=== PATIENT | male | born 2000 | race Caucasian/White ===

== ENCOUNTER 2024-03-07 21:17 | Observation (INO) | payer OTHER, SELFPAY ==
--- NOTE | ~2024-03-07 | CT_ITS ---
) CT abdomen pelvis w con Ordering provider: Gerda Collado APRN History: 23 years Male with . L quadrant abdominal pain . Comparison: None. Technique: CT abdomen and pelvis with IV and without oral contrast. Automated exposure control and it erative reconstruction technique were employed. The dose-length product was 480.75 mGy-cm. 100 mL Omn ipaque 350 was given IV. Findings: VISUALIZED LOWER CHEST: Normal. UPPER ABDOMINAL ORGANS: Liver: Normal. Gallbladder: Normal. Spleen: Normal. Stomach/duodenum: Thickening of the wall of the stomach. Clinical evaluation advised. Pancreas: Normal. Adrenals: Normal. Kidneys: Normal. PELVIC ORGANS: The bladder is normal. BOWEL AND MESENTERY: Colon: No evidence of diverticulitis. Dilated appendix with thickened wall and appendicolith is noted suggestive of appendicitis. Surrounding fat stranding is also seen. The appendix measures 1.3 cm. Small Bowel: Normal. No obstruction. Peritoneum/mesentery: No free air or free fluid. No mesenteric lymphadenopathy. RETROPERITONEUM: Normal aorta. No retroperitoneal lymphadenopathy. MUSCULOSKELETAL: Superficial soft tissues: The superficial soft tissues are normal. Bones: Normal spine. IMPRESSION: 1. Appendicitis with appendicoliths. 2. No other definite abnormality seen. Physician: Gerda Collado APRN Was notified with the result of the patient at the time of dictation which is 11:00 PM on February 232023 Reviewed, dictated and finalized at location A. IMPRESSION: 1. Appendicitis with appendicoliths. 2. No other definite abnormality seen. Physician: Gerda Collado APRN Was notified with the result of the patient at the time of dictation which is 1 1:00 PM on March 07, 2024
[2024-03-07 21:50] VITALS: BP 123/73; PULSE 80; RESP 12; TEMP 36.7; O2SAT 98
[2024-03-07 22:03] LABS: Basophils Percent Auto 0.2 % (0.2-1.2); Eosinophils Absolute Auto 0.1 K/mm3 (0-0.3); Eosinophils Percent Auto 0.3 % (0-4.4); Hematocrit 44.1 % (42.0-52.0); Hemoglobin 15.5 g/dL (14.0-18.0); Immature Granulocyte Absolute 0.08 K/mm3 (0.00-0.031); Immature Granulocyte Percent A 0.4 % (0-0.5); Lymphocytes Absolute Auto 0.89 K/mm3 (0.9-3.2); Lymphocytes Percent Auto 4.8 % (18.3-44.2); Mean Corpuscular HGB Conc 35.1 g/dl (32-36); Mean Corpuscular Hemoglobin 31.1 pg (26-34); Mean Corpuscular Volume 88.4 fl (80-100); Mean Platelet Volume 10.7 fl (7.4-10.4); Monocytes Absolute Auto 0.6 K/mm3 (0.1-0.6); Monocytes Percent Auto 3.5 % (2.6-8.5); Neutrophils Absolute Auto 16.8 K/mm3 (1.3-6.7); Neutrophils Percent Auto 90.8 % (45.5-73.1); Platelet Count Result 192 k/mm3 (150-375); Red Blood Count 4.99 M/mm3 (4.6-6.20); Red Cell Distribution Width 12.8 % (11.5-14.5); White Blood Count 18.5 K/mm3 (4.5-10.0)
[2024-03-07] MEDS: ONDANSETRON INJ 4 MG/2 ML VIAL IV PUSH (22:09)
[2024-03-07] MEDS: HALOPERIDOL LACTATE 5 MG/ML VIAL IM (22:09)
[2024-03-07] MEDS: SODIUM CHLORIDE 0.9% IV 1,000 ML 999 ML IV CONT (22:09)
[2024-03-07] MEDS: FAMOTIDINE 20 MG/2 ML VIAL IV PUSH (22:09)
[2024-03-07 22:11] LABS: Alanine Aminotransferase 16 U/L (6-50); Albumin Level 4.8 g/dL (3.5-5.1); Alkaline Phosphatase 69 U/L (38-126); Anion Gap 16 mmol/L (4-12); Aspartate Amino Transferase 22 U/L (17-59); Bilirubin,Total 1.2 mg/dL (0.2-1.3); Blood Urea Nitrogen 15 mg/dL (9-20); Calcium 9.9 mg/dL (8.4-10.2); Carbon Dioxide 22 mmol/L (22-30); Chloride 100 mmol/L (98-107); Estimated CRCL calculation 154 ml/min; Estimated Glomerular Filt Rate > 60; Glucose 114 mg/dL (65-110); Lipase 288 U/L (23-300); Potassium 3.5 mmol/L (3.4-5.0); Sodium 138 mmol/L (137-145)
[2024-03-07 22:53] LABS: Troponin I < 0.012 ng/mL (0.000-0.034)
[2024-03-07 22:54] LABS: Add Urine Microscopic? YES; Appearance Urine Cloudy (Clear); Bacteria Urine None Seen /hpf; Bilirubin Urine Negative (Negative); Blood Urine Negative (Negative); Color Urine Yellow (Yellow); Glucose Urine UA Negative (Negative); Ketones Urine 3+ mg/dL (Negative); Leukocyte Esterase Ur Negative LEU/UL (Negative); Nitrate Urine Negative (Negative); Non Pathogenic Casts 0-2; Protein Urine Trace mg/dL (Negative); RBC Urine 0-2 /hpf (0-2); Specific Grav Ur > 1.045 (1.001-1.035); Squamous Epithelial Cell Urine None Seen /hpf (Few); WBC Urine 0-5 /hpf (0-3); pH Urine 6.5 (5.0-9.0)
[2024-03-07] MEDS: MORPHINE SULFATE (*CRX) 4 MG/ML INJ IV PUSH (23:13)
[2024-03-07 23:15] VITALS: BP 123/71; PULSE 76; RESP 12; O2SAT 99
[2024-03-07] MEDS: PIPERACILLN/TAZ 3.375GM/NS50ML 3.375 GM/50 ML BAG IVPB (23:33)
[2024-03-08] VITALS (11 sets, daily range): BP systolic 113–130; BP diastolic 56–71; PULSE 86–100; RESP 12–27; TEMP 36.3–37.4; O2SAT 97–100; BMI 28.5; BMI 25.9
--- NOTE | 2024-03-08 00:37 | ED.ABDPAIN ---
HPI - Abdominal Pain General Chief Complaint: Abdominal Pain <Gerda Collado APRN - Last Filed: 03/08/24 00:48> Stated Complaint: Abd pain <Gerda Collado APRN - Last Filed: 03/08/24 00:48> Time Seen by Provider: 03/07/24 21:54 <Gerda Collado APRN - Last Filed: 03/08/24 00:48> Source: patient and family <Gerdayenifer Collado APRN - Last Filed: 03/08/24 00:48> Mode of arrival: ambulatory <Gerda Collado APRN - Last Filed: 03/08/24 00:48> Limitations: no limitations <Gerda Collado APRN - Last Filed: 03/08/24 00:48> History of Present Illness HPI narrative: Patient is a 23-year-old male who presents to the ER with left upper abdominal pain. He reports the pain started at 2:00 a.m. this afternoon. 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 He reports he is a every day marijuana smoker. Patient reports he has been vomiting, but has not had any diarrhea. He has not had any fevers. Patient denies signs and symptoms illness, chest pain, shortness a breath. <Gerda Collado APRN - Last Filed: 03/08/24 00:48> MD elicited complaint: abdominal pain <Gerda Collado APRN - Last Filed: 03/08/24 00:48> Related Data Home Medications: Home Medications Medication Instructions Recorded Confirmed Singulair 25 mg PO DAILY 03/08/24 03/08/24 cetirizine 10 mg tablet (Zyrtec) 10 mg PO DAILY 03/08/24 03/08/24 citalopram 25 mg PO DAILY 03/08/24 03/08/24 <Gerda Collado APRN - Last Filed: 03/08/24 00:48> Allergies/Adverse Reactions: Allergies Allergy/AdvReac Type Severity Reaction Status Date / Time banana Allergy Difficulty Verified 03/08/24 01:57 Breathing cat dander Allergy Difficulty Verified 03/08/24 01:57 Breathing dog dander Allergy Difficulty Verified 03/08/24 01:57 Breathing kimberlee Allergy Difficulty Verified 03/08/24 01:57 Breathing pollen extracts Allergy Difficulty Verified 03/08/24 01:57 Breathing strawberry Allergy Difficulty Verified 03/08/24 01:57 Breathing tree and shrub pollen Allergy Difficulty Verified 03/08/24 01:57 Breathing <Gerda Collado APRN - Last Filed: 03/08/24 00:48> Review of Systems Review of Systems: All systems reviewed & are unremarkable except as noted in HPI and below <Gerda Collado APRN - Last Filed: 03/08/24 00:48> [facility] Social History Social History: Social History Smoking status: Never smoker Alcohol intake: current Drinks per week: 1 Substance use: current Substance use type: marijuana Last use: 03/07/24 Do You Feel Safe in your Home?: Yes Lack of Transportation: No Lack of Food: Never True Current Housing: I Have Housing Concerned About Future Housing: No Difficulty Paying Gas/Electric Bills: No Difficulty Paying for Meds: No Currently Unemployed: YES Education: High School Diploma/GED Difficulty w/ Childcare or Family Care: No Spiritual care concerns: No <Gerda Collado APRN - Last Filed: 03/08/24 00:48> Exam Narrative: GENERAL: Ill-appearing, well-nourished, non-toxic, in no acute distress. NECK: Supple. No adenopathy, no masses. RESPIRATORY: Airway patent, respirations nonlabored. Clear to auscultation bilaterally, no rales, rhonchi, wheezing. CARDIOVASCULAR: Regular rate and rhythm without murmurs, rubs, or gallops. Peripheral pulses 2+ and equal bilaterally. ABDOMINAL: Soft, tender in L upper and lower quadrants, nondistended, no hepatosplenomegaly. Normoactive BS. MUSCULOSKELETAL: Moves all extremities. Strength/ROM intact without gross deformities. SKIN: Warm, dry, normal color. No rashes. NEURO: A&O X3. Speech clear. Cranial nerves II-XII grossly intact. Steady gait. No ataxic movements. PSYCHIATRIC: Appropriate mood and affect. Normal interaction.
--- NOTE | 2024-03-08 01:32 | ADMGEN ---
This patient, Sb Magana, was admitted to 3 [facility] Surg Room 300-01. Patient/family oriented to hospital policies and general routines including ID bracelet, bed and alarms, visiting hours, pain management, procedures, bathroom and other care routines, personal items, smoking policy, room service/diet, and visiting hours. Information on how to activate the Rapid Response Team has been discussed. Patient/Family are encouraged to report perceived risks to care and to ask questions if they do not understand what they are told or what they should do.
[2024-03-08] MEDS: SODIUM CHLORIDE 0.9% IV 1,000 ML 125 ML IV CONT (02:19)
--- NOTE | 2024-03-08 06:47 | WPDANESEPP ---
Anes - Eval Pre Procedure Procedure: Operation Date: 03/08/24 07:30 Proposed Procedures p Laparoscopic Appendectomy(Not Applicable) - Uli Garay DO Date/Time: 03/08/24 06:47 Pre Op Diagnosis: Appendicitis Patient Data Age: 23 Gender: M Height: 1.88 m Weight: 91.7 kg Last Vital Signs Temp 97.9 F 03/08/24 05:28 Pulse 96 03/08/24 05:28 Resp 18 03/08/24 05:28 BP 113/69 03/08/24 05:28 Pulse Ox 98 03/08/24 05:28 O2 Del Method Room Air 03/08/24 01:25 Allergies Allergy/AdvReac Type Severity Reaction Status Date / Time banana Allergy Difficulty Verified 03/08/24 01:57 Breathing cat dander Allergy Difficulty Verified 03/08/24 01:57 Breathing dog dander Allergy Difficulty Verified 03/08/24 01:57 Breathing kimberlee Allergy Difficulty Verified 03/08/24 01:57 Breathing pollen extracts Allergy Difficulty Verified 03/08/24 01:57 Breathing strawberry Allergy Difficulty Verified 03/08/24 01:57 Breathing tree and shrub pollen Allergy Difficulty Verified 03/08/24 01:57 Breathing Home Medications Medication Instructions Recorded Confirmed Type Singulair 25 mg PO DAILY 03/08/24 03/08/24 History cetirizine 10 mg tablet (Zyrtec) 10 mg PO DAILY 03/08/24 03/08/24 History citalopram 25 mg PO DAILY 03/08/24 03/08/24 History Laboratory Tests 03/07/24 03/07/24 21:55 22:41 WBC 18.5 H K/mm3 (4.5-10.0) RBC 4.99 M/mm3 (4.6-6.20) Hgb 15.5 g/dL (14.0-18.0) Hct 44.1 % (42.0-52.0) MCV 88.4 fl (80-100) MCH 31.1 pg (26-34) MCHC 35.1 g/dl (32-36) RDW 12.8 % (11.5-14.5) Plt Count 192 k/mm3 (150-375) MPV 10.7 H fl (7.4-10.4) Immature Gran % (Auto) 0.4 % (0-0.5) Neut % (Auto) 90.8 H % (45.5-73.1) Lymph % (Auto) 4.8 L % (18.3-44.2) Ramsey % (Auto) 3.5 % (2.6-8.5) Eos % (Auto) 0.3 % (0-4.4) Baso % (Auto) 0.2 % (0.2-1.2) Lymph # (Auto) 0.89 L K/mm3 (0.9-3.2) Ramsey # (Auto) 0.6 K/mm3 (0.1-0.6) Eos # (Auto) 0.1 K/mm3 (0-0.3) Baso # (Auto) 0.0 K/mm3 (0.0-0.1) Abs Immat Gran (auto) 0.08 H K/mm3 (0.00-0.031) Absolute Neuts (auto) 16.8 H K/mm3 (1.3-6.7) Absolute Nucleated RBC 0.000 K/mm3 (0.0-0.012) Nucleated RBC % 0.0 % (0.0-0.2) Sodium 138 mmol/L (137-145) Potassium 3.5 mmol/L (3.4-5.0) Chloride 100 mmol/L (98-107) Carbon Dioxide 22 mmol/L (22-30) Anion Gap 16 H mmol/L (4-12) BUN 15 mg/dL (9-20) Creatinine 0.70 mg/dL (0.7-1.3) Estim Creat Clear Calc 154 ml/min Estimated GFR > 60 (59 - ) Glucose 114 H mg/dL (65-110) Calcium 9.9 mg/dL (8.4-10.2) Total Bilirubin 1.2 mg/dL (0.2-1.3) AST 22 U/L (17-59) ALT 16 U/L (6-50) Alkaline Phosphatase 69 U/L (38-126) Troponin I < 0.012 ng/mL (0.000-0.034) Total Protein 8.0 g/dL (6.3-8.2) Albumin 4.8 g/dL (3.5-5.1) Lipase 288 U/L (23-300) Urine Color Yellow (Yellow) Urine Appearance Cloudy H (Clear) Urine pH 6.5 (5.0-9.0) Ur Specific [place] > 1.045 H (1.001-1.035) Urine Protein Trace mg/dL (Negative) Urine Glucose (UA) Negative mg/dL (Negative) Urine Ketones 3+ H mg/dL (Negative) Ur Blood (Man) Negative (Negative) Urine Nitrate Negative (Negative) Urine Bilirubin Negative (Negative) Urine Urobilinogen 1.0 mg/dL (<2.0) Leukocyte Esterase Rfl Negative SEPIDEH/UL (Negative) Urine RBC 0-2 /hpf (0-2) Urine WBC 0-5 /hpf (0-3) Ur Squamous Epith Cells None seen /hpf (Few) Urine Bacteria None seen /hpf Urine Casts 0-2 Patient hx anesthesia problems: none Family hx anesthesia problems: none Results Review:
--- NOTE | 2024-03-08 07:34 | PM.IMHP ---
H&P: HPI History of Present Illness Date/Time: 03/08/24 07:34 Chief Complaint: Left-sided abdominal pain Narrative: This is a 23-year-old man who presented to the emergency department last night with left-sided abdominal pain that started earlier in the day. He stated that he felt somewhat constipated at 1st but the pain just persisted. The pain continued to worsen throughout the day and then he chose to come to the emergency department. He was also experiencing nausea and vomiting. He denies any fevers or chills. He had never had any symptoms like this in the past. Review of Systems Review of Systems: All systems reviewed & are unremarkable except as noted in HPI and below Constitutional: Constitutional: Denies chills, Denies fever(s), Denies headache(s) and Denies weight loss Eyes: Eyes: Denies change in vision ENT: Denies dizziness, Denies headache(s), Denies neck mass and Denies throat swelling Cardiovascular: Cardiovascular: Denies chest pain, Denies lightheadedness and Denies dyspnea Respiratory: Respiratory: Denies cough, Denies dyspnea and Denies wheezing Gastrointestinal: Gastrointestinal: Reports as per HPI Genitourinary: Genitourinary: Denies hematuria and Denies dysuria Musculoskeletal: Musculoskeletal: Reports as per HPI Integumentary/Breasts: Skin/Breast: Reports as per HPI Neurologic: Denies dizziness and Denies headache(s) Allergic/Immunologic: Allergic/Immunologic: Denies throat swelling and Denies wheezing PMF Past Medical History Medical History (Updated 03/08/24 @ 07:37 by Uli Garay DO) Marijuana abuse Overweight (BMI 25.0-29.9) Surgical History Surgical History (Updated 03/08/24 @ 07:36 by Uli Garay DO) Hx of wisdom tooth extraction Family History Family History (Updated 03/08/24 @ 07:36 by Uli Garay DO) Other Diabetes mellitus Social History Social History Smoking status: Never smoker Alcohol intake: current Drinks per week: 1 Substance use: current Substance use type: marijuana Last use: 03/07/24 Do You Feel Safe in your Home?: Yes Lack of Transportation: No Lack of Food: Never True Current Housing: I Have Housing Concerned About Future Housing: No Difficulty Paying Gas/Electric Bills: No Difficulty Paying for Meds: No Currently Unemployed: YES Education: High School Diploma/GED Difficulty w/ Childcare or Family Care: No Spiritual care concerns: No Meds Home Medications and Allergies Home Medications Medication Instructions Recorded Confirmed Type Singulair 25 mg PO DAILY 03/08/24 03/08/24 History cetirizine 10 mg tablet (Zyrtec) 10 mg PO DAILY 03/08/24 03/08/24 History citalopram 25 mg PO DAILY 03/08/24 03/08/24 History Allergies Allergy/AdvReac Type Severity Reaction Status Date / Time banana Allergy Difficulty Verified 03/08/24 01:57 Breathing cat dander Allergy Difficulty Verified 03/08/24 01:57 Breathing dog dander Allergy Difficulty Verified 03/08/24 01:57 Breathing kimberlee Allergy Difficulty Verified 03/08/24 01:57 Breathing pollen extracts Allergy Difficulty Verified 03/08/24 01:57 Breathing strawberry Allergy Difficulty Verified 03/08/24 01:57 Breathing tree and shrub pollen Allergy Difficulty Verified 03/08/24 01:57 Breathing Vital Signs Vital Signs - 24 hr 03/07/24 21:50 03/07/24 23:15 03/08/24 01:54 Temperature 36.7 C 36.3 C L Pulse Rate 80 76 86 Respiratory Rate 12 12 16 Blood Pressure 123/73 123/71 118/61 Pulse Oximetry 98 99 98 Oxygen Delivery Room Air 03/08/24 01:25 03/08/24 05:28 Temperature 36.6 C Pulse Rate 96 Respiratory Rate 18 Blood Pressure 113/69 Pulse Oximetry 98 Oxygen Delivery Room Air Exam Const: General: no acute distress and alert Orientation/consciousness: patient oriented x3 HENMT: Head: normocephalic and atraumat
--- NOTE | 2024-03-08 07:39 | WPDHPUPDATE1 ---
History and Physical Update Update Date/Time: 03/08/24 07:39 History and Physical has been reviewed, including an updated exam of the patient. There are NO changes in the patient's condition. Risks, benefits, and alternatives have been discussed and questions answered. Patient agrees to proceed with procedure.
[2024-03-08] MEDS: LACTATED RINGERS 1,000 ML 30 ML IV CONT ×2 (07:40→08:36)
[2024-03-08] MEDS: ceFAZolin 2 GM/D5W 50 ML 2 GM/50 ML BAG IVPB (07:42)
[2024-03-08] MEDS: metroNIDAZOLE 500 MG/ISO 100ML 500 MG/100 ML BAG 100 MG IVPB (07:54)
[2024-03-08] MEDS: BUPIVACAINE/EPINEPHRINE 0.5% 50 ML VIAL 30 ML INFILTRATE (08:12)
--- NOTE | 2024-03-08 08:35 | W.PM.PROC2 ---
Procedure Note - Detailed Date of Procedure 03/08/24 Pre-op Diagnosis Acute appendicitis Post-op Diagnosis Same Procedure Performed Laparoscopic appendectomy Surgeon lUi Garay, DO Anesthesia General and Local (0.5% bupivacaine with epinephrine) Indications This is a 23-year-old man who presented to the emergency department last night with lower abdominal pain that started earlier that day. He denied any fevers or chills. He was experiencing nausea and vomiting. In the emergency department he was noted to have an elevated white blood count at 18.[address] showed evidence of acute appendicitis. He was started on Zosyn and admitted to the hospital for observation. Discussions were made with the patient about treatment options and decision was made to proceed with laparoscopic appendectomy, possible open. Findings Laparoscopic appendectomy was performed. The appendix was identified in the right lower quadrant and was dilated and indurated. There was a scant amount of exudate on the surface of the appendix but no clear sign of perforation or abscess. The base of the appendix appeared healthy and viable. The appendix was removed and sent to the lab for pathology. Description of Procedure Procedure as well as risks, benefits, and alternatives were explained to the patient. The patient agreed to proceed. Written consent was obtained and placed in chart prior to procedure. The patient was brought back to surgical suite. He was placed supine on operating table. Time-out was done to confirm the patient and procedure. The patient was then intubated by the Anesthesia Department. His abdomen was prepped and draped in sterile fashion using chlorhexidine prep. A 12 mm incision was made at the inferior portion of the umbilicus. Blunt dissection was carried out down to the linea alba. The linea alba was then incised using a 15 blade scalpel. Then bluntly entered into the peritoneal cavity. A 12 mm trocar was then inserted, and carbon dioxide insufflation was used to create a pneumoperitoneum. The camera was inserted and the abdomen was inspected. No immediate abnormalities were identified. The patient was then placed in slight Trendelenburg position and rotated to the left. A 5 mm incision was made in the suprapubic region in midline and a 5 mm trocar was inserted under direct visualization. A 5 mm incision was made in the left lower quadrant and a 5 mm trocar was inserted under direct visualization. The right lower quadrant was carefully inspected. The cecum was identified and then this was traced back to the appendix. The appendix was identified and grasped at the mesoappendix and lifted anteriorly. Careful blunt dissection was carried out at the base of the appendix through the mesoappendix using a [place] grasper. An Endo-JUVENAL 45 mm blue load stapler was then advanced across the base of the appendix and clamped and fired. A white reload was then clamped across the mesoappendix and fired. This freed up our appendix completely. It was then placed in an EndoCatch bag and removed through the umbilical port. The staple lines were then inspected. Hemostasis appeared adequate and the staple lines appeared secure. The area was then irrigated with sterile saline. The pelvis was then carefully inspected and irrigated with sterile saline as well and the remainder of the abdomen was carefully inspected. The patient was then flattened out in bed. One final inspection was made around the abdominal cavity and no other abnormalities were seen. The ports were then removed under direct visualization. The camera was removed and the pneumoperitoneum was released. The fascia of the umbilical incision was reapproximated using an 0 Vicryl eqpmgy-va-assmo suture. 0.5% bupivacaine with epinephrine was infiltrated locally around each of the incisions. The skin of the incisions was then approximated using 4-0 Monocryl subcuticular suture and Exofin glue was applied on
[2024-03-08] MEDS: CITALOPRAM HYDROBROMIDE 5 MG TABLET PO (10:26)
[2024-03-08] MEDS: CITALOPRAM HYDROBROMIDE 20 MG TABLET PO (10:26)
[2024-03-08] MEDS: HYDROcodone/acetaminophen (*CRX) 5-325 MG TABLET 1 TAB PO (10:26)
--- NOTE | 2024-03-08 12:45 | PC.NURSE ---
On 03/08/24, the HUMANITIES COORDINATOR,Mackenzie Camejo, provided care and completed [employer] documentation on this patient. I have reviewed the HUMANITIES COORDINATOR's documentation and agree with the findings.
--- NOTE | 2024-03-11 15:09 | PM.DS ---
DS: Admitting Diagnosis Discharge Date 03/08/24 Admitting Diagnosis Acute appendicitis DS: Discharge Diagnosis Discharge Diagnosis (1) Appendicitis: Qualifiers: Acute appendicitis type: with localized peritonitis Appendicitis abscess presence: unspecified whether abscess present Appendicitis gangrene presence: unspecified whether gangrene present Appendicitis perforation presence: unspecified whether perforation present Appendicitis type: acute appendicitis Qualified Code(s): K35.30 - Acute appendicitis with localized peritonitis, without perforation or gangrene Code(s): K37 - Unspecified appendicitis Status: Acute DS: Summary Hospital Course Reason for hospitalization: Acute appendicitis Hospital Course: This is a 23-year-old man who presented to the emergency department with right lower quadrant pain that started the day prior. He was noted to have an elevated white blood count and CT in the emergency department showed evidence of acute appendicitis. He was placed in observation and started on broad-spectrum IV antibiotics. He was seen that morning and discussions were made with the patient about treatment options. He chose to undergo laparoscopic appendectomy which was performed on 03/08/2024. Surgery was uncomplicated and he was then returned to the surgical floor postoperatively. His diet and activity were advanced as tolerated. He was discharged home once tolerating a regular diet, vitals remained stable, he was ambulating in halls, and pain was well controlled. Status at Discharge Functional status at discharge: independent ambulation Overall status at discharge: patient is progressing back to baseline Time Spent with Patient Time attestation: Total time spent providing and/or coordinating discharge services: Time spent: Less than 30 minutes Exam GI: Inspection: incision (Intact with glue) DS: Data Data Completed and Pending Completed studies during hospitalization: Pending at discharge 03/08/24 08:16 Surgical [PTH] Routine Imaging Radiologist's impression: ITS Impressions Abdomen/Pelvis CT 03/07/24 22:36 IMPRESSION: 1. Appendicitis with appendicoliths. 2. No other definite abnormality seen. Physician: Gerda Collado APRN Was notified with the result of the patient at the time of dictation which is 11:00 PM on March 07, 2024 Discharge Plan Discharge Attending physician on discharge: Uli Plaza Consulting providers: Rosie Pineda; Puneet Rodriguez; Rogelio Beauchamp Jr. Discharging Clinician: Uli Plaza Anticipated Discharge Date/Time: 03/08/24 12:00 Patient Disposition: Home, Self-Care Activity: other - see discharge instructions Diet: regular Wound Care Instructions: other - see discharge instructions Discharge Instructions: DISCHARGE INSTRUCTION SHEET FOR HERNIA, GALLBLADDER AND APPENDIX SURGERIES DR. PLAZA PATIENT TO TAKE HOME 1. May shower in 24 hours, no soaking in bath x 2weeks. 2. Call office for: Wound increasingly painful or bleeding Vomiting Fever of greater than 101 degrees 3. If no bowel movement for three days, take 1 oz. (30 ml) Milk of Magnesia or MiraLax 17g 1 to 2 times daily. 4. No heavy lifting > 10-15 pounds x2 weeks for laparoscopic cholecystectomy or appendectomy. 5. No driving for 3 days or while taking narcotic pain medications. 6. Ice to surgical site for 48 hours (30 min on, then 30 min off). 7. Up walking 10-30 minutes three times per day. 8. Resume previous home medications. 9. Follow-up 10-14 days in office for wound check or as previously scheduled. ([id number]) 10. Oral pain medications prescription to be sent to pharmacy. Take Tylenol 500mg every 6 hours and Ibuprofen 600mg every 6 hours for the first 2 days, then as needed. 11. NUTRITION: Start out by drinking fluids and increase your diet
== END 2024-03-08 12:45 | disposition home or self-care (01) ==
LOC: ANHED 03-08 00:46 → ANH3MEDSUR 03-08 00:52
PROVIDERS: Emergency Medicine; Admitting Provider Surgery; Emergency Provider Registered Nurse; Visit Provider Surgery
PROC: 0DTJ4ZZ Resection of Appendix, Percutaneous Endoscopic Approach (ICD-10-PCS; CPT 44970; principal; 2024-03-08 07:30)
DX: K35.32 Acute appendicitis with perforation, localized peritonitis, and gangrene, without abscess (principal); F12.90 Cannabis use, unspecified, uncomplicated; J45.909 Unspecified asthma, uncomplicated; K21.9 Gastro-esophageal reflux disease without esophagitis; F90.9 Attention-deficit hyperactivity disorder, unspecified type; F42.8 Other obsessive-compulsive disorder
CPT/HCPCS: 44970; 36415; 74177; 80053; 81001; 83690; 84484; 85025; 88304; 96361; 96365; 96367; 96375; 99285; A9270; G0378; J0330; J0690; J1100; J1170; J1630; J1836; J2250; J2270; J2405; J2543; J2704; J7030; J7120; Q9967

== ENCOUNTER 2025-02-10 16:48 | Emergency (ER) | payer SELFPAY ==
--- NOTE | ~2025-02-10 | XR_ITS ---
EXAMINATION: XR chest 2V 02/10/2025 17:08 INDICATION: Chest pain. Heart palpitations COMPARISON: None FINDINGS: Small opacities in the mid and lower lungs. The cardiomediastinal silhouette is within normal limits. There are no pleural effusions. There is no pneumothorax suspected. Probable 5 mm calcified granuloma in the left midlung. IMPRESSION: 1: Small opacities in the mid and lower lungs which represents atelectasis or infiltrates. Reviewed, dictated and finalized at location A.
--- NOTE | 2025-02-10 16:50 | ECG_ITS ---
Test Date: 2025-02-10 16:54:13 Measurements Intervals [place] Rate: 134 P: 75 AK: 140 QRS: 89 QRSD: 101 T: 55 QT: 380 QTc: 569 Interpretive Statements SINUS TACHYCARDIA INCOMPLETE RIGHT BUNDLE BRANCH BLOCK MINIMAL Q WAVES- ANTEROLAT/INF LEADS NONSPECIFIC ST & T-WAVE ABNORMALITY- ANTEROLAT/INF LEADS ABNORMAL ECG No previous ECG available for comparison Electronically Signed On 02-10-2025 16:58:51 CDT by Justus Kim D.O.
--- OUTSIDE RECORDS SUMMARY | 2025-02-10 16:50 | XMS_ITS | Clinical Summary ---
Author Organization [facility] [place] Address [facility] [place] [address] Care Team Providers Care Director Project Management Name Role Phone Unknown, Notinfile Primary Care Provider Unavail able Allergies No known active allergies Medications citalopram (CeleXA) 20 mg tablet Take 1 tablet (20 mg total) by mouth daily 4 Active montelukast (SINGULAIR) 10 mg tablet Take 1 tablet (10 mg total) by mouth daily 4 Active albuterol HFA (PROVENTIL HFA,VENTOLIN HFA,PROAIR HFA) 90 mcg/actuation inhalerIndicatio ns:Lower respiratory infection (e.g., bronchitis, pneumonia, pneumonitis, pulmonitis) Inhale 2 puffs every 6 (six) hours as needed for wheezing or shortness of breath 1 each 4 Active azithromycin (ZITHROMAX) 250 mg tabletIndication s:Lower respiratory infection (e.g., bronchitis, pneumonia, pneumonitis, pulmonitis) Take 2 tablets the first day, then 1 tablet daily for 4 days. 6 tablet 4 Active benzonatate (TESSALON) 200 mg capsuleIndicatio ns:Lower respiratory infection (e.g., bronchitis, pneumonia, pneumonitis, pulmonitis) Take 1 capsule (200 mg total) by mouth 3 (three) times a day as needed for cough 30 capsule 4 Active Active Problems No known active problems Social History Tobacco Use Types Packs/Day Years Used Date Smoking Tobacco: Never Assessed Sex and Gender Information Value Date Recorded Sex Assigned at Not on file Legal Sex Male 12:26 PM [employer] Gender Identity Not on file Sexual Orientation Not on file Obstetrics History Last Filed Vital Signs Vital Sign Reading Time Taken Comments Blood Pressure 110/78 05/30/2024 12:43 PM [employer] Pulse 86 05/30/2024 12:43 PM [employer] Temperature 37.7 C (99.8 F) 05/30/2024 12:43 PM [employer] Respiratory Rate 20 05/30/2024 12:4 3 PM [employer] Oxygen Saturation 97% 05/30/2024 12: 43 PM [employer] Inhaled Oxygen Concentration - - Weight 93 kg (205 lb) 05/30/2024 12:43 PM [employer] MA[employer] patient reported Height 188 cm (6' 2) 05/30/2024 12:43 PM [employer] Patient reported Body Mass Index 26.32 05/30/2024 12:43 PM [employer] Plan of Treatment Health Maintenance Due Date Last Done Comments Depression Screening 1999 Hepatitis C Screening 1999 DTaP/Tdap/Td Vaccine (1 - Tdap) 2010 Varicella Vaccines (1 of 2 - 13+ 2-dose series) 2012 HPV Vaccines (1 - Male 3-dose series) 2014 Hepatitis B Screening 2017 Regular Well Visit/Exam 18-64 2017 Covid-19 Vaccine ( season) 2024 05/26/2021, 09/21/2020, 08/29/2020, Additional history exists Influenza Vaccine (#1) 2025 06/11/2018 Pneumococcal vaccine <65 Aged Out No longer eligible based on patient's age to complete this topic [place] [address] [place] [id number] Care Teams Director Project Management Relationship Specialty Start Date End Date Unknown, Notinfile PCP - General 05/30/24
[2025-02-10 16:57] VITALS: BP 140/79; PULSE 134; RESP 22; TEMP 36.5; O2SAT 98
--- NOTE | 2025-02-10 17:00 | ED.CHESTPAIN ---
HPI - Chest Pain General Chief Complaint: Chest Pain Stated Complaint: chest tightness Time Seen by Provider: 02/10/25 17:00 Focused HPI: This is a 24 year old male that presents to the ER for palpitations. Reports some chest tightness. Ongoing over the last couple of hours. Reports shortness of breath. Patient endorses using drugs. GENERAL: Well-appearing, well-nourished, and in no acute distress. HEAD: Normocephalic, atraumatic. CHEST: Clear to auscultation. ?No respiratory distress. HEART: Regular rate and rhythm.? NEURO: ?Alert and oriented x3. Patient screened in triage and initial orders placed.? ?Additional care and disposition to be based upon?diagnostic testing and treatment. Related Data Home Medications ?Medication ?Instructions ?Recorded ?Confirmed ?Last Taken ?Type Singulair 25 mg PO DAILY 03/08/24 03/31/24 03/07/24 History cetirizine 10 mg tablet (Zyrtec) 10 mg PO DAILY 03/08/24 03/31/24 03/07/24 History citalopram 25 mg PO DAILY 03/08/24 03/31/24 03/07/24 History Allergies Allergy/AdvReac Type Severity Reaction Status Date / Time banana Allergy Difficulty Verified 02/10/25 17:00 Breathing cat dander Allergy Difficulty Verified 02/10/25 17:00 Breathing dog dander Allergy Difficulty Verified 02/10/25 17:00 Breathing kimberlee Allergy Difficulty Verified 02/10/25 17:00 Breathing pollen extracts Allergy Difficulty Verified 02/10/25 17:00 Breathing strawberry Allergy Difficulty Verified 02/10/25 17:00 Breathing tree and shrub pollen Allergy Difficulty Verified 02/10/25 17:00 Breathing PMFSH Past Medical History Medical History (Updated 02/11/25 @ 10:33 by Deidra Santiago PA-C) Overweight (BMI 25.0-29.9) Marijuana abuse Surgical History Surgical History (Updated 03/28/24 @ 09:14 by Mackenzie Boone CMA) History of laparoscopic appendectomy 03/08/24 Uli Garay DO Hx of wisdom tooth extraction Family History Family History Other Diabetes mellitus Social History Social History Smoking status: Never smoker Alcohol intake: current Drinks per week: 1 Substance use: current Substance use type: marijuana Last use: 03/07/24 Do You Feel Safe in your Home?: Yes Lack of Transportation: No Lack of Food: Never True Current Housing: I Have Housing Concerned About Future Housing: No Difficulty Paying Gas/Electric Bills: No Difficulty Paying for Meds: No Currently Unemployed: YES Education: High School Diploma/GED Difficulty w/ Childcare or Family Care: No Spiritual care concerns: No Course Vital Signs Vital signs: Vital Signs Temperature 97.7 F 02/10/25 16:57 Pulse Rate 134 H 02/10/25 16:57 Respiratory Rate 22 H 02/10/25 16:57 Blood Pressure 140/79 02/10/25 16:57 Pulse Oximetry 98 02/10/25 16:57 Oxygen Delivery Room Air 02/10/25 16:57 Temperature 97.7 F 02/10/25 16:57 Pulse Rate 134 H 02/10/25 16:57 Respiratory Rate 22 H 02/10/25 16:57 Blood Pressure 140/79 02/10/25 16:57 Pulse Oximetry 98 02/10/25 16:57 Oxygen Delivery Room Air 02/10/25 16:57 MDM - Chest Pain MDM Narrative Medical decision making narrative: Patient left after medical screening exam and initial workup, and before any further evaluation or management Lab Data 02/10/25 17:04 02/10/25 17:04 Labs: Lab Results 02/10/25 Range/Units 17:04 WBC 13.1 H (4.5-10.0) K/mm3 RBC 5.04 (4.6-6.20) M/mm3 Hgb 15.6 (14.0-18.0) g/dL Hct 44.3 (42.0-52.0) % MCV 87.9 (80-100) fl MCH 31.0 (26-34) pg MCHC 35.2 (32-36) g/dl RDW 13.0 (11.5-14.5) % Plt Count 215 (150-375) k/mm3 MPV 10.3 (7.4-10.4) fl Immature Gran % (Auto) 0.4 (0-0.5) % Neut % (Auto) 71.3 (45.5-73.1) % Lymph % (Auto) 16.1 L (18.3-44.2) % [place] % (Auto) 7.5 (2.6-8.5) % Eos % (Auto) 4.2 (0-4.4) % Baso % (Auto) 0.5 (0.2-1.2) % Lymph # (Auto) 2.11 (0.9-3.2) K/mm3 [place] # (Auto) 1.0 H (0.1-0.6) K/mm3 Eos # (Auto) 0.6 H (0-0.3) K/mm3 Baso # (Auto) 0.1 (0.0-0.1) K/mm3 Abs Immat Gran (auto) 0.05 H (0.00-0.031) K/mm3 Absolute Neuts (auto) 9.4 H (1.3-6.7) K/mm3 Absolute Nucleated RBC 0.000 (0.0-0.012) K/mm3 Nucleated RBC % 0.0 (0.0-0.2) % PT 14.1 (11.1-14.7) Seconds INR 1.1 APTT 30.3 (22.3-36.8) Seconds Sodium 136 L (137-145) mmol/L Potassium 3.9 (3.4-5.0) mmol/L Chloride 103 (98-107) mmol/L Carbon Dioxide 21 L (22-30) mmol/L Anion Gap 12 (4-12) mmol/L BUN 9 D (9-20) mg/dL Creatinine 0.70 (0.7-1.3) mg/dL Estim Creat Clear Calc 162 ml/min Estimated GFR > 60 (59 - ) Glucose 102 (65-110) mg/dL Calcium 9.8 (8.4-10.2) mg/dL Total Bilirubin 0.9 (0.2-1.3) mg/dL AST 28 (17-59) U/L ALT 17 (6-50) U/L Alkaline Phosphatase 72 (38-126) U/L Troponin I < 0.012 (0.000-0.034) ng/mL Total Protein 8.1 (6.3-8.2) g/dL Albumin 4.9 (3.5-5.1) g/dL Lipase 306 H (23-300) U/L Discharge Plan Discharge Clinical Impression: Chest pain Qualifiers: Chest pain type: unspecified Qualified Code(s): R07.9 - Chest pain, unspecified Patient Disposition: Elopement After Seen by Prov Patient Language: Canadian Prescriptions: No Action cetirizine [Zyrtec] 10 mg Tablet 10 mg PO DAILY Singulair 25 mg PO DAILY citalopram 25 mg PO DAILY Follow-up/Referrals: PHYSICIAN NOT ON STAFF,NONSTAFF [Primary Care Provider]
[2025-02-10 17:14] LABS: Hematocrit 44.3 % (42.0-52.0); Hemoglobin 15.6 g/dL (14.0-18.0); Immature Granulocyte Percent A 0.4 % (0-0.5); Lymphocytes Absolute Auto 2.11 K/mm3 (0.9-3.2); Mean Corpuscular HGB Conc 35.2 g/dl (32-36); Mean Corpuscular Hemoglobin 31.0 pg (26-34); Mean Corpuscular Volume 87.9 fl (80-100); Nucleated Red Blood Cells Absolute Auto 0.000 K/mm3 (0.0-0.012); Nucleated Red Blood Cells Perc 0.0 % (0.0-0.2); Platelet Count Result 215 k/mm3 (150-375); Red Blood Count 5.04 M/mm3 (4.6-6.20); White Blood Count 13.1 K/mm3 (4.5-10.0)
[2025-02-10 17:25] LABS: INR 1.1; Prothrombin Time 14.1 Seconds (11.1-14.7)
[2025-02-10 17:26] LABS: Partial Thromboplastin Time 30.3 Seconds (22.3-36.8)
[2025-02-10 17:56] LABS: Alanine Aminotransferase 17 U/L (6-50); Albumin Level 4.9 g/dL (3.5-5.1); Alkaline Phosphatase 72 U/L (38-126); Anion Gap 12 mmol/L (4-12); Aspartate Amino Transferase 28 U/L (17-59); Bilirubin,Total 0.9 mg/dL (0.2-1.3); Blood Urea Nitrogen 9 mg/dL (9-20); Calcium 9.8 mg/dL (8.4-10.2); Carbon Dioxide 21 mmol/L (22-30); Chloride 103 mmol/L (98-107); Estimated CRCL calculation 162 ml/min; Estimated Glomerular Filt Rate > 60; Glucose 102 mg/dL (65-110); Lipase 306 U/L (23-300); Potassium 3.9 mmol/L (3.4-5.0); Sodium 136 mmol/L (137-145); Total Protein 8.1 g/dL (6.3-8.2)
[2025-02-10 18:06] LABS: Troponin I < 0.012 ng/mL (0.000-0.034)
== END 2025-02-10 18:00 | disposition left against medical advice (07) ==
PROVIDERS: Emergency Medicine; Emergency Provider Physician Assistant
DX: R07.89 Other chest pain (principal); I45.10 Unspecified right bundle-branch block; R00.0 Tachycardia, unspecified; R94.31 Abnormal electrocardiogram [ECG] [EKG]
CPT/HCPCS: 36415; 71046; 80053; 83690; 84484; 85025; 85610; 85730; 93005; 99284